=== PATIENT | male | born 1950 | race Caucasian/White ===

== ENCOUNTER 2023-01-23 15:00 | Inpatient (IN) | payer OTHER ==
[~2023-01-23] VITALS: Ht 157.5 cm; Wt 99.5 kg
[2023-01-23 11:30] LABS: BASOPHILS % (AUTO) 0.8 % (0.0-5.0); HEMATOCRIT 47.6 % (42-54); LYMPHOCYTES % (AUTO) 21.2 % (21.0-51.0); MEAN CORPUSCULAR HEMOGLOBIN 31.6 pg (27.0-33.0); MEAN CORPUSCULAR HGB CONC 32.8 g/dL (32.0-36.0); MEAN CORPUSCULAR VOLUME 96.6 fL (79-99); MONOCYTES % (AUTO) 8.2 % (3.0-13.0); NEUTROPHILS % (AUTO) 65.5 % (40.0-77.0); PLATELET COUNT (AUTO) 207 K/uL (130-400); RED BLOOD CELL COUNT(AUTO) 4.93 MIL/uL (4.50-6.20); RED CELL DISTRIBUTION WIDTH 13.5 % (11.0-15.5); WHITE BLOOD COUNT (AUTO) 7.4 K/uL (4.8-10.8)
[2023-01-23 11:34] LABS: APPEARANCE,URINE CLEAR (CLEAR); BILIRUBIN,URINE NEGATIVE (NEGATIVE); COLOR,URINE LIGHT-YELLOW (YELLOW); GLUCOSE, URINE (UA) NEGATIVE (NEGATIVE); KETONES,URINE NEGATIVE (NEGATIVE); LEUKOCYTE ESTERASE ,URINE NEGATIVE Leu/uL (NEGATIVE); NITRATE,URINE NEGATIVE (NEGATIVE); OCCULT BLOOD,URINE NEGATIVE (NEGATIVE); PH,URINE 5.5 (5.0-8.0); PROTEIN,URINE NEGATIVE (NEGATIVE); UROBILINOGEN,URINE 0.2 mg/dL (0.2-1.0)
[2023-01-23 11:39] LABS: ALBUMIN 3.4 g/dL (3.5-5.0); CARBON DIOXIDE 32 mmol/L (21-32); CHLORIDE 100 mmol/L (101-111); CREATININE 0.7 mg/dL (0.5-1.5); GLOMERULAR FILTR. RATE CALC 99 mL/min (>90); GLUCOSE,RANDOM 100 mg/dL (70-105); POTASSIUM 4.6 mmol/L (3.5-5.1); SODIUM SERUM 136 mmol/L (136-145); UREA NITROGEN, BLOOD 15 mg/dL (7-18)
[2023-01-23 11:45] LABS: CRP QUANTITATIVE < 2.00 mg/L (0.00-9.0)
[2023-01-23 12:12] VITALS: BP 144/76
[2023-01-23 12:14] LABS: INR 0.94 (0.85-1.15); PROTHROMBIN TIME 10.3 SEC (9.6-11.6)
[2023-01-23 12:15] LABS: PARTIAL THROMBOPLASTIN TIME 29.8 SEC (26.3-35.5)
[~2023-01-23 15:00] MED LIST: ACET-2743 PO; CBD IH; IBUP-2077 PO
[2023-01-24] VITALS (25 sets, daily range): BP systolic 87–145; BP diastolic 54–78
[2023-01-24] MEDS ORDERED: LACTATED RINGERS 1000ML 1,000 ML IV ONE (06:26)
[2023-01-24] MEDS ORDERED: CEFAZOLIN SODIUM 2 GM VIAL ONE (06:26)
[2023-01-24] MEDS ORDERED: PROPOFOL 1000 MG/100 ML 100 ML IV ONE (06:55)
[2023-01-24] MEDS ORDERED: KETAMINE 50MG/ML SYRINGE 50 MG/ML DISP.SYRIN ONE (06:55)
[2023-01-24] MEDS ORDERED: MIDAZOLAM HCL 1 MG/ML 2ML VIAL ONE (06:57)
[2023-01-24] MEDS ORDERED: SOLU-MEDROL 40MG VIAL ONE (07:01)
[2023-01-24] MEDS ORDERED: EPHEDRINE SULFATE 50 MG/ML AMPULE ONE (07:09)
[2023-01-24] MEDS ORDERED: BUPIVACAINE/PF 0.5% 30ML VIAL ONE (07:48)
[2023-01-24] MEDS ORDERED: LIDOCAINE HCL-MPF 2% 10ML AMP IJ ONE (07:49)
[2023-01-24] MEDS ORDERED: LIDOCAINE 2%-EPI 1:200,000 20 ML VIAL IJ ONE (07:57)
[2023-01-24] MEDS ORDERED: TRANEXAMIC ACID 1000MG/10ML ONE (08:15)
[2023-01-24] MEDS ORDERED: POTASSIUM CHLORIDE 10% ELIXIR 20 MEQ/15 ML UDCUP PO PRN (08:30)
[2023-01-24] MEDS ORDERED: POTASSIUM CHLORIDE 20MEQ/100ML 100 ML IV PRN (08:30)
[2023-01-24] MEDS: 0.9%NACL 1000ML 1,000 ML IV SCH ×2 (08:30→18:30)
[2023-01-24] MEDS ORDERED: KCL 20 MEQ ERTAB PO PRN (08:30)
[2023-01-24] MEDS ORDERED: FERROUS FUMARATE 324 MG TABLET PO PRN (08:30)
[2023-01-24] MEDS ORDERED: DiphenhydrAMINE HCL 50 MG/ML VIAL IVP PRN (08:30)
[2023-01-24] MEDS ORDERED: CALCIUM CARB 500MG PO PRN (08:30)
[2023-01-24] MEDS ORDERED: ONDANSETRON 4MG INJ IVP PRN (08:30)
[2023-01-24] MEDS ORDERED: ALBUTEROL INHALER 90MCG/INH IH PRN (08:30)
[2023-01-24] MEDS: ASPIRIN 325MG TAB PO SCH (09:00)
[2023-01-24] MEDS: POLYETHYLENE GLYCOL 3350 17 GM POWD.PACK PO SCH (09:00)
[2023-01-24] MEDS: GABAPENTIN 100 MG CAPSULE PO SCH ×3 (09:00→20:48)
[2023-01-24] MEDS: DOCUSATE SODIUM 100 MG CAP PO SCH ×2 (09:00→20:52)
[2023-01-24] MEDS ORDERED: ONDANSETRON 4MG INJ ONE (09:06)
[2023-01-24] MEDS ORDERED: DEXAMETHASONE SOD PHOSPHATE 10MG/ML 1ML VIAL ONE (09:06)
[2023-01-24] MEDS ORDERED: TRANEXAMIC ACID 1000MG/10ML IV ONE (09:41)
[2023-01-24] MEDS: TRAMADOL HCL 50 MG TABLET PO PRN (12:12)
[2023-01-24] MEDS: KETOROLAC 15MG/ML VIAL (15MG/ML) IV SCH ×3 (12:13→23:54)
[2023-01-24] MEDS: HYDROCODONE/ACETAMINOPHEN 5/325 MG TAB PO PRN ×2 (12:32→13:48)
[2023-01-24] MEDS: CEFAZOLIN SODIUM 1 GM VIAL IVPB SCH ×2 (13:30→20:48)
[2023-01-24] MEDS: IPRATROPIUM/ALBUTEROL SULFATE 3 ML SOLUTION IH SCH ×3 (14:00→22:00)
[2023-01-24] MEDS: BUDESONIDE 0.5 MG/2 ML INH IH SCH (18:57)
[2023-01-25] VITALS: BP 116/64
[2023-01-25] MEDS: IPRATROPIUM/ALBUTEROL SULFATE 3 ML SOLUTION IH SCH ×6 (02:00→22:00)
[2023-01-25 03:58] VITALS: BP 127/73
[2023-01-25] MEDS: 0.9%NACL 1000ML 1,000 ML IV SCH (04:30)
[2023-01-25 05:46] LABS: HEMATOCRIT 38.9 % (42-54); MEAN CORPUSCULAR HEMOGLOBIN 31.9 pg (27.0-33.0); MEAN CORPUSCULAR HGB CONC 33.2 g/dL (32.0-36.0); RED BLOOD CELL COUNT(AUTO) 4.05 MIL/uL (4.50-6.20); RED CELL DISTRIBUTION WIDTH 13.1 % (11.0-15.5); WHITE BLOOD COUNT (AUTO) 14.1 K/uL (4.8-10.8)
[2023-01-25 06:01] LABS: CREATININE 0.8 mg/dL (0.5-1.5); POTASSIUM 4.1 mmol/L (3.5-5.1)
[2023-01-25] MEDS: BUDESONIDE 0.5 MG/2 ML INH IH SCH ×2 (06:31→18:00)
[2023-01-25 08:00] VITALS: BP 108/60
[2023-01-25] MEDS: POLYETHYLENE GLYCOL 3350 17 GM POWD.PACK PO SCH (09:00)
[2023-01-25] MEDS: DOCUSATE SODIUM 100 MG CAP PO SCH ×2 (09:16→20:52)
[2023-01-25] MEDS: HYDROCODONE/ACETAMINOPHEN 5/325 MG TAB PO PRN ×3 (09:16→20:48)
[2023-01-25] MEDS: ASPIRIN 325MG TAB PO SCH (09:16)
[2023-01-25 12:00] VITALS: BP 118/68
[2023-01-25] MEDS: KETOROLAC 15MG/ML VIAL (15MG/ML) IV PRN (14:51)
[2023-01-25] MEDS: GABAPENTIN 100 MG CAPSULE PO SCH ×2 (15:12→20:47)
[2023-01-25 16:00] VITALS: BP 139/78
[2023-01-25 20:11] VITALS: BP 121/56
[2023-01-26] VITALS: BP 115/71
[2023-01-26] MEDS: KETOROLAC 15MG/ML VIAL (15MG/ML) IV PRN ×2 (02:24→09:32)
[2023-01-26] MEDS: CYCLOBENZAPRINE HCL 10 MG TABLET PO PRN ×2 (03:27→15:27)
[2023-01-26] MEDS: HYDROCODONE/ACETAMINOPHEN 5/325 MG TAB PO PRN ×3 (03:27→22:13)
[2023-01-26 04:00] VITALS: BP 117/58
[2023-01-26 05:06] LABS: BASOPHILS % (AUTO) 0.2 % (0.0-5.0); EOSINOPHILS % (AUTO) 0.6 % (0.0-8.0); HEMATOCRIT 35.6 % (42-54); LYMPHOCYTES % (AUTO) 12.7 % (21.0-51.0); MEAN CORPUSCULAR HEMOGLOBIN 31.9 pg (27.0-33.0); MEAN CORPUSCULAR HGB CONC 32.9 g/dL (32.0-36.0); MONOCYTES % (AUTO) 9.5 % (3.0-13.0); NEUTROPHILS % (AUTO) 76.5 % (40.0-77.0); PLATELET COUNT (AUTO) 185 K/uL (130-400); RED BLOOD CELL COUNT(AUTO) 3.67 MIL/uL (4.50-6.20); RED CELL DISTRIBUTION WIDTH 13.6 % (11.0-15.5); WHITE BLOOD COUNT (AUTO) 10.9 K/uL (4.8-10.8)
[2023-01-26 05:23] LABS: CREATININE 0.6 mg/dL (0.5-1.5); MAGNESIUM 1.6 mg/dL (1.80-2.40); PHOSPHORUS 3.3 mg/dL (2.5-4.9); POTASSIUM 3.9 mmol/L (3.5-5.1)
[2023-01-26] MEDS: GABAPENTIN 100 MG CAPSULE PO SCH ×3 (07:04→21:26)
[2023-01-26] MEDS: MAGNESIUM 2GM PREMIX 50ML 50 ML IV PRN (07:08)
[2023-01-26 08:00] VITALS: BP 113/69
[2023-01-26] MEDS: ENOXAPARIN SODIUM 40 MG/0.4 ML SYRINGE SQ SCH (09:30)
[2023-01-26] MEDS: POLYETHYLENE GLYCOL 3350 17 GM POWD.PACK PO SCH (09:30)
[2023-01-26] MEDS: ASPIRIN 325MG TAB PO SCH (09:31)
[2023-01-26] MEDS: DOCUSATE SODIUM 100 MG CAP PO SCH ×2 (09:31→21:26)
[2023-01-26 12:00] VITALS: BP 94/51
[2023-01-26 16:00] VITALS: BP 128/62
[2023-01-26 20:00] VITALS: BP 127/67
[2023-01-27] VITALS: BP 140/73
[2023-01-27] MEDS: TRAMADOL HCL 50 MG TABLET PO PRN (02:11)
[2023-01-27 04:00] VITALS: BP 110/57
[2023-01-27 05:03] LABS: BASOPHILS % (AUTO) 0.5 % (0.0-5.0); EOSINOPHILS % (AUTO) 1.4 % (0.0-8.0); LYMPHOCYTES % (AUTO) 16.1 % (21.0-51.0); MEAN CORPUSCULAR HEMOGLOBIN 31.9 pg (27.0-33.0); MEAN CORPUSCULAR HGB CONC 32.9 g/dL (32.0-36.0); MONOCYTES % (AUTO) 10.2 % (3.0-13.0); NEUTROPHILS % (AUTO) 71.4 % (40.0-77.0); PLATELET COUNT (AUTO) 206 K/uL (130-400); RED BLOOD CELL COUNT(AUTO) 3.61 MIL/uL (4.50-6.20); RED CELL DISTRIBUTION WIDTH 13.4 % (11.0-15.5)
[2023-01-27 05:17] LABS: CREATININE 0.6 mg/dL (0.5-1.5); POTASSIUM 3.8 mmol/L (3.5-5.1)
[2023-01-27 08:00] VITALS: BP 120/65
[2023-01-27] MEDS ORDERED: BISACODYL 10 MG SUPP.RECT RC PRN (08:30)
[2023-01-27] MEDS: ENOXAPARIN SODIUM 40 MG/0.4 ML SYRINGE SQ SCH (08:32)
[2023-01-27] MEDS: DOCUSATE SODIUM 100 MG CAP PO SCH ×2 (08:32→20:42)
[2023-01-27] MEDS: ASPIRIN 325MG TAB PO SCH (08:32)
[2023-01-27] MEDS: HYDROCODONE/ACETAMINOPHEN 5/325 MG TAB PO PRN ×3 (08:33→21:16)
[2023-01-27] MEDS: POLYETHYLENE GLYCOL 3350 17 GM POWD.PACK PO SCH (09:00)
[2023-01-27 12:00] VITALS: BP 151/77
[2023-01-27] MEDS: GABAPENTIN 100 MG CAPSULE PO SCH ×2 (14:00→20:42)
[2023-01-27 16:00] VITALS: BP 139/81
[2023-01-27 20:00] VITALS: BP 125/68
[2023-01-27] MEDS: CYCLOBENZAPRINE HCL 10 MG TABLET PO PRN (21:16)
[2023-01-28] VITALS: BP 124/61
[2023-01-28] MEDS: HYDROCODONE/ACETAMINOPHEN 5/325 MG TAB PO PRN ×3 (03:23→17:07)
[2023-01-28 04:00] VITALS: BP 128/67
[2023-01-28 04:43] LABS: BASOPHILS % (AUTO) 0.3 % (0.0-5.0); EOSINOPHILS % (AUTO) 2.6 % (0.0-8.0); HEMATOCRIT 35.3 % (42-54); LYMPHOCYTES % (AUTO) 15.1 % (21.0-51.0); MEAN CORPUSCULAR HGB CONC 32.9 g/dL (32.0-36.0); MEAN CORPUSCULAR VOLUME 97.5 fL (79-99); MONOCYTES % (AUTO) 9.9 % (3.0-13.0); NEUTROPHILS % (AUTO) 71.9 % (40.0-77.0); PLATELET COUNT (AUTO) 244 K/uL (130-400); RED BLOOD CELL COUNT(AUTO) 3.62 MIL/uL (4.50-6.20); RED CELL DISTRIBUTION WIDTH 13.1 % (11.0-15.5); WHITE BLOOD COUNT (AUTO) 9.1 K/uL (4.8-10.8)
[2023-01-28 05:12] LABS: CREATININE 0.5 mg/dL (0.5-1.5); MAGNESIUM 1.6 mg/dL (1.80-2.40); POTASSIUM 3.9 mmol/L (3.5-5.1)
[2023-01-28] MEDS: GABAPENTIN 100 MG CAPSULE PO SCH ×2 (05:22→14:00)
[2023-01-28] MEDS: MAGNESIUM 2GM PREMIX 50ML 50 ML IV PRN (05:50)
[2023-01-28 08:00] VITALS: BP 129/66
[2023-01-28] MEDS: ASPIRIN 325MG TAB PO SCH (09:10)
[2023-01-28] MEDS: POLYETHYLENE GLYCOL 3350 17 GM POWD.PACK PO SCH (09:10)
[2023-01-28] MEDS: DOCUSATE SODIUM 100 MG CAP PO SCH ×2 (09:10→21:06)
[2023-01-28] MEDS: ENOXAPARIN SODIUM 40 MG/0.4 ML SYRINGE SQ SCH (09:11)
[2023-01-28 12:00] VITALS: BP 119/56
[2023-01-28 17:17] VITALS: BP 147/76
[2023-01-28] MEDS: TRAMADOL HCL 50 MG TABLET PO PRN (18:48)
[2023-01-28 19:00] VITALS: BP 120/71
[2023-01-28] MEDS: CYCLOBENZAPRINE HCL 10 MG TABLET PO PRN (21:07)
[2023-01-29] VITALS: BP 126/76
[2023-01-29] MEDS: HYDROCODONE/ACETAMINOPHEN 5/325 MG TAB PO PRN ×2 (00:36→17:29)
[2023-01-29 04:00] VITALS: BP 135/77
[2023-01-29] MEDS: MAGNESIUM 2GM PREMIX 50ML 50 ML IV PRN (05:56)
[2023-01-29] MEDS: TRAMADOL HCL 50 MG TABLET PO PRN (05:57)
[2023-01-29 08:35] LABS: MEAN CORPUSCULAR HEMOGLOBIN 32.1 pg (27.0-33.0); MEAN CORPUSCULAR HGB CONC 33.1 g/dL (32.0-36.0); RED BLOOD CELL COUNT(AUTO) 3.61 MIL/uL (4.50-6.20); RED CELL DISTRIBUTION WIDTH 13.1 % (11.0-15.5); WHITE BLOOD COUNT (AUTO) 8.5 K/uL (4.8-10.8)
[2023-01-29 08:44] LABS: CREATININE 0.6 mg/dL (0.5-1.5); POTASSIUM 3.7 mmol/L (3.5-5.1)
[2023-01-29 08:49] LABS: ALBUMIN 2.3 g/dL (3.5-5.0); TOTAL PROTEIN, SERUM 6.3 g/dL (6.0-8.3)
[2023-01-29] MEDS: DOCUSATE SODIUM 100 MG CAP PO SCH ×2 (09:06→20:15)
[2023-01-29] MEDS: POLYETHYLENE GLYCOL 3350 17 GM POWD.PACK PO SCH (09:06)
[2023-01-29] MEDS: ENOXAPARIN SODIUM 40 MG/0.4 ML SYRINGE SQ SCH (09:07)
[2023-01-29 11:48] VITALS: BP 123/62
[2023-01-29] MEDS: CYCLOBENZAPRINE HCL 10 MG TABLET PO PRN ×2 (14:44→23:07)
[2023-01-29 16:00] VITALS: BP 136/72
[2023-01-29 19:00] VITALS: BP 131/66
[2023-01-29 23:00] VITALS: BP 117/64
[2023-01-30] MEDS: HYDROCODONE/ACETAMINOPHEN 5/325 MG TAB PO PRN ×3 (00:04→21:03)
[2023-01-30 05:00] VITALS: BP 118/64
[2023-01-30] MEDS: MAGNESIUM 2GM PREMIX 50ML 50 ML IV PRN (06:11)
[2023-01-30] MEDS: TRAMADOL HCL 50 MG TABLET PO PRN ×2 (06:12→20:21)
[2023-01-30 07:36] LABS: HEMATOCRIT 34.7 % (42-54); MEAN CORPUSCULAR HEMOGLOBIN 31.9 pg (27.0-33.0); MEAN CORPUSCULAR HGB CONC 33.1 g/dL (32.0-36.0); MEAN CORPUSCULAR VOLUME 96.4 fL (79-99); RED BLOOD CELL COUNT(AUTO) 3.6 MIL/uL (4.50-6.20); RED CELL DISTRIBUTION WIDTH 13.2 % (11.0-15.5); WHITE BLOOD COUNT (AUTO) 8.4 K/uL (4.8-10.8)
[2023-01-30 07:51] LABS: CREATININE 0.6 mg/dL (0.5-1.5); POTASSIUM 3.5 mmol/L (3.5-5.1)
[2023-01-30 08:00] VITALS: BP 121/64
[2023-01-30] MEDS: DOCUSATE SODIUM 100 MG CAP PO SCH ×2 (09:11→20:20)
[2023-01-30] MEDS: ENOXAPARIN SODIUM 40 MG/0.4 ML SYRINGE SQ SCH (09:11)
[2023-01-30] MEDS: POLYETHYLENE GLYCOL 3350 17 GM POWD.PACK PO SCH (09:11)
[2023-01-30 11:52] VITALS: BP 137/70
[2023-01-30 16:00] VITALS: BP 122/64
[2023-01-30 19:00] VITALS: BP 113/62
[2023-01-30] MEDS: CYCLOBENZAPRINE HCL 10 MG TABLET PO PRN (20:20)
[2023-01-30 23:00] VITALS: BP 131/69
[2023-01-31 05:00] VITALS: BP 134/71
[2023-01-31 07:56] VITALS: BP 143/69
[2023-01-31 08:17] LABS: HEMATOCRIT 33.8 % (42-54); MEAN CORPUSCULAR HEMOGLOBIN 31.9 pg (27.0-33.0); MEAN CORPUSCULAR HGB CONC 33.4 g/dL (32.0-36.0); MEAN CORPUSCULAR VOLUME 95.5 fL (79-99); RED BLOOD CELL COUNT(AUTO) 3.54 MIL/uL (4.50-6.20); RED CELL DISTRIBUTION WIDTH 13.2 % (11.0-15.5); WHITE BLOOD COUNT (AUTO) 8.3 K/uL (4.8-10.8)
[2023-01-31] MEDS: POLYETHYLENE GLYCOL 3350 17 GM POWD.PACK PO SCH (08:22)
[2023-01-31] MEDS: DOCUSATE SODIUM 100 MG CAP PO SCH (08:22)
[2023-01-31] MEDS: ENOXAPARIN SODIUM 40 MG/0.4 ML SYRINGE SQ SCH (08:23)
[2023-01-31 08:29] LABS: CREATININE 0.5 mg/dL (0.5-1.5); POTASSIUM 3.6 mmol/L (3.5-5.1)
[2023-01-31] MEDS: HYDROCODONE/ACETAMINOPHEN 5/325 MG TAB PO PRN ×2 (10:25→16:28)
[2023-01-31] MEDS ORDERED: HYDRALAZINE HCL 10 MG TABLET PO PRN (10:30)
[2023-01-31 11:42] VITALS: BP 131/65
[2023-01-31 15:35] VITALS: BP 130/73
[2023-01-31] MEDS ORDERED: ASPI-1012 PO (18:10)
[2023-01-31] MEDS ORDERED: DOCU-116 PO (18:10)
[2023-01-31] MEDS ORDERED: HYDR-4060 PO (18:10)
[2023-01-31] MEDS ORDERED: CYCL-309 PO (18:10)
== END 2023-01-31 16:00 | DRG 470 ==
LOC: DAHIP 01-24 05:59 → UNDOADMIN 01-24 05:59 → 4BH 01-24 15:25 → DAHIP 01-24 15:25
PROVIDERS: ADMIT Student in an Organized Health Care Education/Training Program; ATTEND Student in an Organized Health Care Education/Training Program
PROC: 0SR90JZ Replacement of Right Hip Joint with Synthetic Substitute, Open Approach (ICD-10-PCS; principal; 2023-01-24 08:24)
DX: M16.11 Unilateral primary osteoarthritis, right hip (principal); D62 Acute posthemorrhagic anemia; R65.10 Systemic inflammatory response syndrome (SIRS) of non-infectious origin without acute organ dysfunction; Z68.41 Body mass index [BMI] 40.0-44.9, adult; J96.10 Chronic respiratory failure, unspecified whether with hypoxia or hypercapnia; Z20.822 Contact with and (suspected) exposure to COVID-19; J44.9 Chronic obstructive pulmonary disease, unspecified; E88.09 Other disorders of plasma-protein metabolism, not elsewhere classified; E66.09 Other obesity due to excess calories
CPT/HCPCS: 36415; 73502; 73503; 80048; 80053; 81003; 82040; 83735; 84100; 84134; 85025; 85027; 85610; 85730; 86140; 87088; 87426; 87641; 94664; 94667; 97039; C1776; G0378; J0690; J1100; J1650; J1885; J2250; J2405; J2704; J2920; J3475; J3490; J7120